=== PATIENT | female | born 1980 | race Caucasian/White ===

== ENCOUNTER 2017-04-16 10:03 | Inpatient (IN) | payer OTHER ==
[~2017-04-16] VITALS: Ht 162.6 cm; Wt 94.5 kg
[2017-04-16 10:17] VITALS: BP 135/86; PULSE 98; RESP 19; Ht 162.6 cm; Wt 94.5 kg
[2017-04-16 10:36] LABS: ADD SCAN DIFF NO
[2017-04-16 10:38] LABS: BASOPHILS % 0.2 % (0.0-2.0); EOSINOPHILS # 0.1 10^3/ul (0.0-0.5); EOSINOPHILS % 1.2 % (0.0-7.0); HEMATOCRIT 32.8 % (37.0-47.0); LYMPHOCYTES # 1.5 10^3/ul (0.8-2.9); LYMPHOCYTES % 15.5 % (15.0-51.0); MEAN CORPUSCULAR HEMOGLOBIN 28.5 pg (29.0-33.0); MEAN CORPUSCULAR HGB CONC 33.5 g/dl (32.0-37.0); MEAN PLATELET VOLUME 10.4 fl (7.4-10.4); MONOCYTE # 0.5 10^3/ul (0.3-0.9); MONOCYTES % 5.7 % (0.0-11.0); NEUTROPHIL # 7.2 10^3/ul (1.6-7.5); NEUTROPHILS % 76.5 % (39.0-77.0); PLATELET COUNT 253 10^3/UL (140-415); RED BLOOD COUNT 3.86 10^6/ul (4.20-5.40); RED CELL DISTRIBUTION WIDTH 13.9 % (11.5-14.5); WHITE BLOOD COUNT 9.4 10^3/ul (4.8-10.8)
--- NOTE | 2017-04-16 10:55 | RADRPT ---
PROCEDURE: OB ultrasound for biophysical profile CLINICAL INDICATION: Poor tone. TECHNIQUE: Multiple sonographic images of the pelvis were obtained. Transabdominal views of the g ravid uterus are available for review. The images were reviewed on a PACS workstation. COMPARISON: None FINDINGS: breathing movement = 2/2 tone = 2/2 motion = 2/2 CARLI = 2/2 CARLI = 10.6 cm Single live intrauterine with cardiac activity of 134 bpm. position is cephal ic. The placenta is anterior. IMPRESSION: 1. Single live intrauterine gestation. 2. Biophysical profile = 8/8. 3. CARLI = 10.6 cm. RPTAT: HH .Estefany Swann MD, MD Date Time Electronically viewed and signed by .Estefany Swann MD, on 04/16/2017 10:55 .G/
[2017-04-16 10:58] LABS: URINE BLOOD (Dip) POC Negative (NEGATIVE)
[2017-04-16] MEDS ORDERED: IRON1TAB78 PO (10:59)
[2017-04-16] MEDS ORDERED: PREN1TAB91 PO (10:59)
[2017-04-16] MEDS ORDERED: LABE100T3 PO (10:59)
--- NOTE | 2017-04-16 11:05 | RADRPT ---
PROCEDURE: Obstetrical ultrasound CLINICAL INDICATION: Hypertension TECHNIQUE: Multiple sonographic images of the pelvis were obtained. The images were reviewed on a PACS workstation. COMPARISON: None FINDINGS: The cervix is not well visualized. There is a single viable intrauterine gestation. Cardiac activity is present with 146 beats per minute. There is a vertex presentation. The placenta is anterior. There is no evidence for an abruption or placenta previa. There is a subjectively normal amount of amniotic fluid. Measurements were made in order to determine age. The results are as follows (cm): BPD =8.69 HC =32.09 AC =32.71 FL =6.49 Estimated gestational age by ultrasound of approximately 35 weeks, 2 days. The estimated date of delivery by ultrasound is 05/19/2017. Estimated gestational age by LMP of approximately 35 weeks, 0 days. The estimated date of delivery by LMP is 05/21/2017. EFW = 2724 grams (65th percentile) IMPRESSION: Single viable intrauterine gestation of approximately 35 weeks, 2 days . The estimated date of delivery is 05/19/2017 . Dating by ultrasound is within 2 days of dating by LMP. Cephalic presentation. Estimated weight is in the 65th percentile. RPTAT: EE Physician Vivian Date Time Electronically viewed and signed by Physician Vivian on 04/16/2017 11:05 /
[2017-04-16 11:07] LABS: PROTIME 13.2 Sec (12.2-14.2)
[2017-04-16 11:08] LABS: PARTIAL THROMBOPLASTIN TIME 28.6 Sec (25.0-35.0)
[2017-04-16 11:09] LABS: ALBUMIN 3.8 g/dl (3.3-4.9); ALBUMIN/GLOBULIN RATIO 1.31; BILIRUBIN,INDIRECT 0.5 mg/dl (0-1.1); BILIRUBIN,TOTAL 0.5 mg/dl (0.2-1.3); CALCIUM 9.2 mg/dl (8.4-10.2); CREATININE 0.57 mg/dl (0.44-1.00); POTASSIUM 3.8 mmol/L (3.5-5.1); TOTAL PROTEIN 6.7 g/dl (6.1-8.1); URIC ACID 4.6 mg/dl (3.1-7.9)
[2017-04-16] MEDS ORDERED: LACTATED RINGER'S 1,000 ML IV SCH (11:35)
[2017-04-16] MEDS ORDERED: ACETAMINOPHEN 325 MG TAB PO PRN (12:00)
[2017-04-16] MEDS ORDERED: ACCU-CHEK XX SCH (14:00)
--- NOTE | 2017-04-16 15:45 | CONS ---
Date/Time of Note Date/Time of Note DATE: 04/16/17 TIME: 15:36 Consultation Date/Type/Reason Admit Date/Time Apr 16, 2017 Hospital consult Reason for Consultation This patient is a 36 years old 8 para 4 living 4 : one set of twins , 3 therapeutic and 2 spontaneous vaginal delivery ,2 section. she is a scheduled for another section on May 15. She came to OB triage for consult ans subsequently admitted in the high risk due to elevated blood pressure and for collection of 24-hour urine. her due date is May 21, 2017 which makes her 35 weeks and 6 days On questioning the patient she is complaining of occasional headache and blurry vision Currently she is taking labetalol 150 mg twice daily, iron and multivitamin . on admission her blood pressure was around 136/86 and then again 134/84 and subsequently 131/79, in half an hour interval. Her vital signs were normal, blood pressure as I mentioned is 135/80, pulse rate 90, respiration 18, and temperature 97.7 On lab studies her PT was 13.2, INR 1 ,PTT 28 . Her liver function tests were basically normal,. Serum electrolytes were normal, hemoglobin 11 hematocrit 32.8 Except for the slight anemia no other abnormal finding on CBC Laboratory Tests Test 04/16/17 10:20 04/16/17 11:02 04/16/17 12:01 White Blood Count 9.410^3/ul Red Blood Count 3.8610^6/ul Hemoglobin 11.0g/dl Hematocrit 32.8% Mean Corpuscular Volume 85.0fl Mean Corpuscular Hemoglobin 28.5pg Mean Corpuscular Hemoglobin Concent 33.5g/dl Red Cell Distribution Width 13.9% Platelet Count 21461^3/UL Mean Platelet Volume 10.4fl Neutrophils % 76.5% Lymphocytes % 15.5% Monocytes % 5.7% Eosinophils % 1.2% Basophils % 0.2% Nucleated Red Blood Cells % 0.0/100WBC Neutrophils # 7.210^3/ul Lymphocytes # 1.510^3/ul Monocytes # 0.510^3/ul Eosinophils # 0.110^3/ul Basophils # 0.010^3/ul Nucleated Red Blood Cells # 0.010^3/ul Prothrombin Time 13.2Sec Prothrombin Time Ratio 1.0 INR International Normalized Ratio 1.00 Activated Partial Thromboplast Time 28.6Sec Sodium Level 138mmol/L Potassium Level 3.8mmol/L Chloride Level 110mmol/L Carbon Dioxide Level 19mmol/L Anion Gap 13 Blood Urea Nitrogen 9mg/dl Creatinine 0.57mg/dl Glucose Level 118mg/dl Uric Acid 4.6mg/dl Calcium Level 9.2mg/dl Total Bilirubin 0.5mg/dl Direct Bilirubin 0.00mg/dl Indirect Bilirubin 0.5mg/dl Aspartate Amino Transf (AST/SGOT) 17IU/L Alanine Aminotransferase (ALT/SGPT) 23IU/L Alkaline Phosphatase 80IU/L Total Protein 6.7g/dl Albumin 3.8g/dl Globulin 2.90g/dl Albumin/Globulin Ratio 1.31 Bedside Urine pH (LAB) 6.0 Bedside Urine Protein (LAB) Trace Bedside Urine Glucose (UA) Negative Bedside Urine Ketones (LAB) Negative Bedside Urine Blood Negative Bedside Urine Nitrite (LAB) Negative Bedside Urine Leukocyte Esterase (L 1+ Bedside Glucose 84mg/dL Current Medications Medications (Trade) Dose Ordered Sig/Timothy Route PRN Reason Start Time Stop Time Status Last Admin Dose Admin Lactated Ringer's (Lr) 1,000 ml @ 125 mls/hr Q8H IV 04/16/17 11:35 Prenat Multivit/ Military Professional/Iron/Folic Ac ( S) 1 tab DAILY PO 04/17/17 09:00 Ferrous Sulfate (Ferrous Sulfate (Ec)) 325 mg DAILY PO 04/17/17 09:00 Acetaminophen (Tylenol Tab) 650 mg Q4H PRN PO PAIN AND OR ELEVATED TEMP 04/16/17 12:00 Diagnostic Test (Pha) (Accu-Chek) 1 ea FBSPP XX 04/16/17 14:00 Constitutional: No chills, No diaphoresis, No disoriented, No febrile, No improved, No no complaints, No other, No poor po, No requiring IVF, No requiring O2 Eyes: No discharge, No no complaints, No other, No pain, No redness, No visual change ENT: No bleeding, No congestion, No discharge, No dysphagia, No no complaints, No other, No pain, No sore throat Respiratory: No cough, No no complaints, No other, No pain, No pleuritic pain, No shortness of breath, No sputum, No wheezing Cardiovascular: other (Slight elevation of the blood pressure), No chest pain, No edema, No lightheadedness, No no complaints, No orthopenea , No palpitations, No paroxysmal nocturnal dyspnea Gastrointestinal: No blood, No constipation, No decreased appetite, No diarrhea , No flatus, No nausea, No no complaints, No other, No pain, No passing stool, No vomiting Genitourinary: other (No discharge no vaginal bleeding), No bleeding, No discharge, No dysuria, No flank pain, No hematuria, No no complaints Musculoskeletal: No back pain, No bone/joint pain, No neck pain, No no complaints, No other, No restricted range of motion, No swelling Skin: No bruising, No erythema, No laceration, No no complaints, No other, No pruritis, No rash, No skin lesions Neurologic: other (Knee-jerk reflex were normal), No confusion, No dizziness, No focal-weakness, No headache, No no complaints , No seizure, No syncope Endocrine: No dry skin, No no complaints, No other, No polydypsia, No polyuria , No temp intolerance Additional Comments An ultrasound study was done ,her CARLI was 10.6 cm Report of ultrasound was single intrauterine with a heartbeat of 134 ,cephalic presentation and normal placenta Biophysical profile 06/18 and CARLI examination 10.6 Patient stated that she does not want to stay till tomorrow for 24 hour urine collection because tomorrow morning at 530 she has to be at home for this reason she will be discharged to continue the collection of the urine at home Social History Smoking Status: Never smoker Exam/Review of Systems Vital Signs Vitals Vital Signs Date Time Temp Pulse Resp B/P Pulse Ox O2 Delivery O2 Flow Rate FiO2 04/16/17 10:17 97.7 98 19 135/86 99 Room Air Results Result Diagram: 04/16/17 1020 04/16/17 1020 Results 24 hrs Laboratory Tests Test 04/16/17 10:20 04/16/17 11:02 04/16/17 12:01 White Blood Count 9.4 Red Blood Count 3.86 L Hemoglobin 11.0 L Hematocrit 32.8 L Mean Corpuscular Volume 85.0 Mean Corpuscular Hemoglobin 28.5 L Mean Corpuscular Hemoglobin Concent 33.5 Red Cell Distribution Width 13.9 Platelet Count 253 Mean Platelet Volume 10.4 Neutrophils % 76.5 Lymphocytes % 15.5 Monocytes % 5.7 Eosinophils % 1.2 Basophils % 0.2 Nucleated Red Blood Cells % 0.0 Neutrophils # 7.2 Lymphocytes # 1.5 Monocytes # 0.5 Eosinophils # 0.1 Basophils # 0.0 Nucleated Red Blood Cells # 0.0 Prothrombin Time 13.2 Prothrombin Time Ratio 1.0 INR International Normalized Ratio 1.00 Activated Partial Thromboplast Time 28.6 Sodium Level 138 Potassium Level 3.8 Chloride Level 110 Carbon Dioxide Level 19 L Anion Gap 13 Blood Urea Nitrogen 9 Creatinine 0.57 Glucose Level 118 Uric Acid 4.6 Calcium Level 9.2 Total Bilirubin 0.5 Direct Bilirubin 0.00 Indirect Bilirubin 0.5 Aspartate Amino Transf (AST/SGOT) 17 Alanine Aminotransferase (ALT/SGPT) 23 Alkaline Phosphatase 80 Total Protein 6.7 Albumin 3.8 Globulin 2.90 Albumin/Globulin Ratio 1.31 Bedside Urine pH (LAB) 6.0 Bedside Urine Protein (LAB) Trace H Bedside Urine Glucose (UA) Negative Bedside Urine Ketones (LAB) Negative Bedside Urine Blood Negative Bedside Urine Nitrite (LAB) Negative Bedside Urine Leukocyte Esterase (L 1+ H Bedside Glucose 84 Medications Medications Current Medications Lactated Ringer's (Lr) 1,000 ml @ 125 mls/hr Q8H IV ; Start 04/16/17 at 11:35 Prenat Multivit/ [employer] Professional/Iron/Folic Ac ( S) 1 tab DAILY PO ; Start at 09:00 Ferrous Sulfate (Ferrous Sulfate (Ec)) 325 mg DAILY PO ; Start 04/17/17 at 09:00 Acetaminophen (Tylenol Tab) 650 mg Q4H PRN PO PAIN AND OR ELEVATED TEMP; Start 04/16/17 at 12:00 Diagnostic Test (Pha) (Accu-Chek) 1 ea FBSPP XX ; Start 04/16/17 at 14:00 TEVIN SAAB MD Apr 16, 2017 15:45
--- NOTE | 2017-04-16 15:52 | QN ---
Documentation Comment April 16, 2017 Discharge summary This patient is a 36 years old 8 para 4 with one set of twins . She came to the triage area due to elevated blood pressure and for 24 hours urine collection to check urine protein . She was admitted in the hospital and a collection of urine protein was started , however the patient mentioned that she has to be in her home at 5:00 in the morning due the situation with her child . During her stay in the hospital her blood pressure was ranging from 136/86 only up to 121/70 ; a rather mild elevation of blood pressure. Her urine collection was started and the patient will be sent home sometimes tonight with the urine container to continue collecting the urine output 24 hours and bring it back to the hospital. Please note that her complete history and physical was dictated an hour ago on the hospital consult TEVIN SAAB MD Apr 16, 2017 15:52
[2017-04-17] MEDS ORDERED: MULTIVIT/MIN/FOLATE/IRON/PREN TAB PO SCH (09:00)
[2017-04-17] MEDS ORDERED: FERROUS SULFATE (EC) 325 MG TAB PO SCH (09:00)
== END 2017-04-16 20:51 | disposition home or self-care (01) | DRG 781 ==
LOC: OBT 10:03 → L-D 10:04 → OBT 11:16 → OBG 11:20
PROVIDERS: ADMIT Obstetrics & Gynecology; ATTEND Obstetrics & Gynecology
DX: O26.893 Other specified pregnancy related conditions, third trimester (principal); O09.523 Supervision of elderly multigravida, third trimester; Z3A.35 35 weeks gestation of pregnancy; O99.013 Anemia complicating pregnancy, third trimester
CPT/HCPCS: 36415; 76815; 76818; 80053; 81003; 82962; 84560; 85025; 85610; 85730; G0463; J7120

== ENCOUNTER 2017-04-17 12:09 | Outpatient (CLI) | payer OTHER ==
[~2017-04-17] VITALS: Ht 162.6 cm; Wt 94.2 kg
[~2017-04-17 12:09] MED LIST: IRON1TAB78 PO; LABE100T3 PO; PREN1TAB91 PO
[2017-04-17 12:54] VITALS: BP 127/81; PULSE 94
[2017-04-17 12:57] VITALS: Ht 162.6 cm; Wt 94.2 kg
[2017-04-17 13:42] LABS: SCRET 0.57 mg/dl (0.44-1.00)
--- NOTE | 2017-04-17 15:37 | TRIAGE ---
OB Triage Datetime Report Generated by CPN: 04/17/2017 15:36 Datetime: 04/17/2017 15:35 Stage of : OB Triage Maternal Assessment Level of Consciousness: Fully Conscious Headache: Denies Nausea/Vomiting: Denies RUQ Epigastric Pain: Denies Labor Evaluation Frequency: 0 Monitor Mode: External Heart Rate FHR Baseline Rate: 135 Monitor Mode: External US FHR Baseline Changes: No Baseline Change Variability: Moderate 6-25 bpm Accelerations: 15X15 Decelerations: None Category: Category I Pain Assessment Pain Scale: 0 Vaginal Exam Membrane Status: Intact Vaginal Bleeding: None Datetime: 04/17/2017 12:35 Stage of : OB Triage Assessment Type: Triage Maternal Assessment Level of Consciousness: Fully Conscious DTR's/Clonus: DTRs 2+; No Clonus Headache: Denies Blurred Vision: No Respiratory Effort: Unlabored; Regular Rhythm; Equal Expansion Nausea/Vomiting: Denies RUQ Epigastric Pain: Denies Lower Extremities Edema: None Upper Extremities Edema: None Facial Edema: None Fall Risk Assessment History of Falling: (0) No Secondary Diagnosis: (0) No Ambulatory Aid: (0) Bedrest/Nurse Assist IV Therapy: (0) No Gait: (0) Normal/Bedrest/Immobile Mental Status: (0) Oriented to Own Ability Fall Score: 0 Fall Risk Score Definition: No Risk: No action required Labor Evaluation Frequency: 0 Monitor Mode: External Heart Rate FHR Baseline Rate: 125 Monitor Mode: External US FHR Baseline Changes: No Baseline Change Variability: Moderate 6-25 bpm Accelerations: 15X15 Decelerations: None Category: Category I Pain Assessment Pain Scale: 0 Vaginal Exam Membrane Status: Intact Vaginal Bleeding: None Datetime: 04/16/2017 20:35 Labor Evaluation Frequency: 4-6 Monitor Mode: External Duration (sec)2399: 60-120 Quality: Mild Pattern: Normal: <= 5 Contractions in 10 Minutes Resting Tone [place]: Relaxed Heart Rate FHR Baseline Rate: 135 Monitor Mode: External US Variability: Moderate 6-25 bpm Accelerations: 15X15 Category: Category I Datetime: 04/16/2017 20:29 Monitor Mode: External US Comments: AUDIBLE ACCELERATIONS AND FHT'S HEARD THOUGH NOT RECORDED ON STRIP. Datetime: 04/16/2017 20:07 Monitor Mode: External US Datetime: 04/16/2017 20:00 Labor Evaluation Frequency: OCCASIONAL Monitor Mode: External Duration (sec)2399: 40-80 Quality: Mild Pattern: Normal: <= 5 Contractions in 10 Minutes Resting Tone [place]: Relaxed Contraction Comments: PT DENIES FEELING UC'S. Heart Rate FHR Baseline Rate: 130 Monitor Mode: External US Variability: Moderate 6-25 bpm Accelerations: 15X15 Decelerations: None Category: Category I Datetime: 04/16/2017 19:45 Assessment Type: Ongoing Assessment Maternal Assessment Level of Consciousness: Fully Conscious DTR's/Clonus: DTRs 2+; No Clonus Headache: Denies Blurred Vision: No Respiratory Effort: Unlabored; Regular Rhythm; Equal Expansion Breath Sounds, Left: Clear and Equal Breath Sounds, Right: Clear and Equal Nausea/Vomiting: Denies RUQ Epigastric Pain: Denies Lower Extremities Edema: None Degree: None Upper Extremities Edema: None Degree: None Facial Edema: None Fall Risk Assessment History of Falling: (0) No Secondary Diagnosis: (0) No Ambulatory Aid: (0) Bedrest/Nurse Assist IV Therapy: (0) No Gait: (0) Normal/Bedrest/Immobile Mental Status: (0) Oriented to Own Ability Fall Score: 0 Fall Risk Score Definition: No Risk: No action required Monitor Mode: External US Pain Assessment Pain Scale: 0 Pain Presence: None/Denies Pain Type: N/A Pain Goal: 2 Datetime: 04/16/2017 19:22 Bedside Blood Glucose: 94 Datetime: 04/16/2017 19:00 Labor Evaluation Frequency: IRRIT Monitor Mode: External Pattern: Normal: <= 5 Contractions in 10 Minutes Resting Tone [place]: Relaxed Heart Rate FHR Baseline Rate: 120 Monitor Mode: External US FHR Baseline Changes: No Baseline Change Variability: Moderate 6-25 bpm Accelerations: 15X15 Decelerations: None Category: Category I Datetime: 04/16/2017 18:11 Labor Evaluation Frequency: 0 Monitor Mode: External Pattern: Normal: <= 5 Contractions in 10 Minutes Resting Tone [place]: Relaxed Heart Rate FHR Baseline Rate: 130 Monitor Mode: External US FHR Baseline Changes: No Baseline Change Variability: Moderate 6-25 bpm Accelerations: 15X15 Decelerations: None Category: Category I Datetime: 04/16/2017 17:05 Labor Evaluation Frequency: 0 Monitor Mode: External Pattern: Normal: <= 5 Contractions in 10 Minutes Resting Tone [place]: Relaxed Heart Rate FHR Baseline Rate: 130 Monitor Mode: External US FHR Baseline Changes: No Baseline Change Variability: Moderate 6-25 bpm Accelerations: 15X15 Decelerations: None Category: Category I Datetime: 04/16/2017 16:05 Labor Evaluation Frequency: 0 Monitor Mode: External Pattern: Normal: <= 5 Contractions in 10 Minutes Resting Tone [place]: Relaxed Heart Rate FHR Baseline Rate: 140 Monitor Mode: External US FHR Baseline Changes: No Baseline Change Variability: Moderate 6-25 bpm Accelerations: 15X15 Decelerations: None Category: Category I Datetime: 04/16/2017 15:05 Labor Evaluation Frequency: 0 Monitor Mode: External Pattern: Normal: <= 5 Contractions in 10 Minutes Resting Tone [place]: Relaxed Heart Rate FHR Baseline Rate: 120 Monitor Mode: External US FHR Baseline Changes: No Baseline Change Variability: Moderate 6-25 bpm Accelerations: 15X15 Decelerations: None Category: Category I Datetime: 04/16/2017 14:05 Labor Evaluation Frequency: 0 Monitor Mode: External Pattern: Normal: <= 5 Contractions in 10 Minutes Resting Tone [place]: Relaxed Heart Rate FHR Baseline Rate: 120 Monitor Mode: External US FHR Baseline Changes: No Baseline Change Variability: Absent - Undetectable Accelerations: 15X15 Decelerations: None Category: Category I Datetime: 04/16/2017 13:32 Labor Evaluation Frequency: 0 Monitor Mode: External Pattern: Normal: <= 5 Contractions in 10 Minutes Resting Tone [place]: Relaxed Heart Rate FHR Baseline Rate: 120 Monitor Mode: External US FHR Baseline Changes: No Baseline Change Variability: Moderate 6-25 bpm Accelerations: 15X15 Decelerations: None Category: Category I Datetime: 04/16/2017 12:32 Temperature Route: Oral Labor Evaluation Frequency: 0 Monitor Mode: External Pattern: Normal: <= 5 Contractions in 10 Minutes Resting Tone [place]: Relaxed Heart Rate FHR Baseline Rate: 120 Monitor Mode: External US FHR Baseline Changes: No Baseline Change Variability: Moderate 6-25 bpm Accelerations: 15X15 Decelerations: None Category: Category I Datetime: 04/16/2017 12:03 Maternal Assessment Level of Consciousness: Fully Conscious DTR's/Clonus: DTRs 2+; No Clonus Headache: Denies Breath Sounds, Left: Clear and Equal Breath Sounds, Right: Clear and Equal Nausea/Vomiting: Denies RUQ Epigastric Pain: Denies Temperature Route: Oral Labor Evaluation Frequency: 0 Monitor Mode: External Pattern: Normal: <= 5 Contractions in 10 Minutes Resting Tone [place]: Relaxed Heart Rate FHR Baseline Rate: 120 Monitor Mode: External US FHR Baseline Changes: No Baseline Change Variability: Moderate 6-25 bpm Accelerations: 15X15 Decelerations: None Category: Category I Datetime: 04/16/2017 11:51 Assessment Type: Admission Assessment Blurred Vision: No Respiratory Effort: Unlabored; Regular Rhythm; Equal Expansion Degree: None Upper Extremities Edema: None Degree: None Facial Edema: None Fall Risk Assessment History of Falling: (0) No Secondary Diagnosis: (0) No Ambulatory Aid: (0) Bedrest/Nurse Assist IV Therapy: (0) No Gait: (0) Normal/Bedrest/Immobile Mental Status: (0) Oriented to Own Ability Fall Score: 0 Fall Risk Score Definition: No Risk: No action required Datetime: 04/16/2017 11:50 Labor Evaluation Frequency: 0 Monitor Mode: External Resting Tone [place]: Relaxed Heart Rate FHR Baseline Rate: 130 Monitor Mode: External US FHR Baseline Changes: No Baseline Change Variability: Moderate 6-25 bpm Accelerations: 15X15 Decelerations: None Category: Category I Datetime: 04/16/2017 11:46 Stage of : Antepartum Temperature Route: Oral Pain Assessment Pain Scale: 0 Pain Presence: None/Denies Pain Goal: 0 Datetime: 04/16/2017 11:16 Labor Evaluation Frequency: NONE Monitor Mode: External Resting Tone [place]: Relaxed Heart Rate FHR Baseline Rate: 140 Monitor Mode: External US Variability: Moderate 6-25 bpm Accelerations: 10X10 Decelerations: None Category: Category I Vaginal Exam Membrane Status: Intact Datetime: 04/16/2017 10:31 Maternal Assessment Level of Consciousness: Fully Conscious DTR's/Clonus: DTRs 1+ Headache: Occipital Blurred Vision: Yes Respiratory Effort: Unlabored Breath Sounds, Left: Clear and Equal Breath Sounds, Right: Clear and Equal Nausea/Vomiting: Denies RUQ Epigastric Pain: Present Facial Edema: None Labor Evaluation Frequency: NONE Monitor Mode: External Resting Tone [place]: Relaxed Heart Rate FHR Baseline Rate: 140 Monitor Mode: External US Variability: Moderate 6-25 bpm Accelerations: 15X15 Decelerations: None Category: Category I Pain Assessment Pain Scale: 0 Pain Presence: None/Denies Pain Type: N/A Pain Goal: 3 Datetime: 04/16/2017 10:09 Stage of : OB Triage Maternal Assessment Level of Consciousness: Fully Conscious DTR's/Clonus: DTRs 2+; No Clonus Headache: Denies Blurred Vision: No Respiratory Effort: Unlabored; Regular Rhythm; Equal Expansion Breath Sounds, Left: Clear and Equal Breath Sounds, Right: Clear and Equal Nausea/Vomiting: Denies RUQ Epigastric Pain: Denies Lower Extremities Edema: None Degree: None Upper Extremities Edema: Bilateral Upper Extremities Degree: Pitting Facial Edema: None Temperature Route: Oral Fall Risk Assessment History of Falling: (0) No Secondary Diagnosis: (0) No Ambulatory Aid: (0) Bedrest/Nurse Assist IV Therapy: (0) No Gait: (0) Normal/Bedrest/Immobile Mental Status: (0) Oriented to Own Ability Fall Score: 0 Fall Risk Score Definition: No Risk: No action required Datetime: 04/16/2017 10:00 Stage of : OB Triage Time of Arrival: 04/16/2017 10:00 EGA: 35.0 Arrived By: Ambulatory Arrived From: Office Chief Complaint: PT CAME IN FROM [facility] FOR CHRONIC HYPERTENCION C/O HEADACHE, BLURRED VIS ION, EPIGASTRIC PAIN AND SWELLING ON HANDS AND FEET Movement: Present Contractions: Denies/Absent Contractions: 0 Rupture of Membranes: Denies Vaginal Discharge: Denies Recent Sexual Intercouse: Denies Abdominal Trauma: Not Applicable Patient Complaints: None Additional Patient Complaints: NONE Time Provider Notified: 04/17/2017 13:40 Provider Notified: MAVERICK Initial Plan: [facility] PANEL, BPP
--- NOTE | 2017-04-17 17:39 | PN ---
Triage Information Date/Time April 17, 2017 Weeks of Gestation 35 weeks and 1 day : 8 Para: 5 Diabetes: none Hypertention: induced Additional information 36-year-old with IUP at 35 weeks and 1 day with elevated blood pressure was sent to triage for follow-up of blood pressure as well as to drop 24 hour urine protein. Patient was monitored during observation and her blood pressure was 110-120s over 60s-80s. She denies any headache, blurred vision or epigastric pain. 24 hour urine protein: 98 patient currently on labetalol 100 mg p.o. twice daily. She also has a history of GDM during current , diet controlled. Her fasting blood sugar is 89. Patient reports she had episodes of headache and blurred vision couple days ago and she checked her blood pressure at home and once was 140/90 but then after rest shortly resolves. She is aware of signs and symptoms of preeclampsia. Currently denies any leaking of fluid, vaginal bleeding or contraction. Objective Vital Signs Date Time Temp Pulse Resp B/P Pulse Ox O2 Delivery O2 Flow Rate FiO2 04/17/17 12:54 98.6 94 127/81 Room Air Exam GA:A&O, NAD Abdomen: Soft, gravid, fundal height consistent with gestational age. Nontender , no rebound tenderness, no rigidity no guarding Extremities: No calf tenderness, 1+ symmetric bilateral edema. No click , negative Homans sign NST: Category 1 Results/Medications Results 24 hrs Laboratory Tests Test 04/17/17 12:45 Urine Random Creatinine 110.90 Urine Collection Duration 24 Urine Total Volume 24 Hours 1225 Urine Creatinine Timed 24 Creatinine Clearance 165.5 H Urine Total Volume (Protein) 1225 Urine Total Protein 24 Hour 98.0 Imaging Results PROCEDURE: Obstetrical ultrasound CLINICAL INDICATION: Hypertension TECHNIQUE: Multiple sonographic images of the pelvis were obtained. The images were reviewed on a PACS workstation. COMPARISON: None FINDINGS: The cervix is not well visualized. There is a single viable intrauterine gestation. Cardiac activity is present with 146 beats per minute. There is a vertex presentation. The placenta is anterior. There is no evidence for an abruption or placenta previa. There is a subjectively normal amount of amniotic fluid. Measurements were made in order to determine age. The results are as follows (cm): BPD = 8.69 HC = 32.09 AC = 32.71 FL = 6.49 Estimated gestational age by ultrasound of approximately 35 weeks, 2 days. The estimated date of delivery by ultrasound is 05/19/2017. Estimated gestational age by LMP of approximately 35 weeks, 0 days. The estimated date of delivery by LMP is 05/21/2017. EFW = 2724 grams (65th percentile) IMPRESSION: Single viable intrauterine gestation of approximately 35 weeks, 2 days . The estimated date of delivery is 05/19/2017 . Dating by ultrasound is within 2 days of dating by LMP. Cephalic presentation. Estimated weight is in the 65th percentile. Assessment/Plan IUP at 35 weeks and 1 day GDM, diet controlled PIH, blood pressure well controlled with labetalol p.o. twice daily No evidence of preeclampsia No evidence of labor, or PPROM NST: Category 1 Patient is aware of signs and symptoms of preeclampsia DC home Follow-up with office in 1-2 days Strict labor precaution and kick count and preeclampsia precaution Return to triage if she has any of the above symptoms or any concerns. Patient verbalized understanding SHREYA SAEED MD Apr 17, 2017 17:39
== END 2017-04-17 14:10 | disposition home or self-care (01) ==
LOC: OBT 12:09 → L-D 12:11 → OBT 14:10
PROVIDERS: ATTEND Obstetrics & Gynecology
DX: O13.3 Gestational [pregnancy-induced] hypertension without significant proteinuria, third trimester (principal); O24.410 Gestational diabetes mellitus in pregnancy, diet controlled; O09.523 Supervision of elderly multigravida, third trimester; Z3A.35 35 weeks gestation of pregnancy
CPT/HCPCS: 82575; 84156; Z7500; G0463

== ENCOUNTER 2017-05-15 04:56 | Inpatient (IN) | payer OTHER ==
[~2017-05-15] VITALS: Ht 162.6 cm; Wt 96.3 kg
--- NOTE | 2017-05-15 04:59 | NSTRPT ---
NST Information Datetime Report Generated by CPN: 05/15/2017 04:59 Datetime: 05/10/2017 13:07 NST Information EGA: 38.3 Test Number: 3 Time on Monitor: 05/10/2017 13:45 Time off Monitor: 05/10/2017 14:11 NST Duration (Min): 26 Reason for NST: Chronic Hypertension Test and Monitor Explained: Monitor Explained; Test Explained; Verbalized Understanding Pulse: 100 Resp: 18 SBP: 115 DBP: 77 Test Evaluation NST Interventions: None Patient States Movement: Present Contraction Frequency: NONE FHR Baseline : 130 Variability: Moderate 6-25bpm Decelerations: None FHR Category: Category I NST Results: Reactive Comments: To u/s. CARLI 16.3cm. CEPHALIC. Pt home undelivered with labor precautions, kick count instructions reviewed and to follow up with scheduled c/s for 05/15. States understanding and denies futher questions at this time. Electronically Signed By E-Signature: with User ID: [id number] Datetime: 05/07/2017 13:20 NST Information EGA: 38.0 NST Duration (Min): 47 Datetime: 04/12/2017 13:12 NST Information EGA: 34.3 Datetime: 04/12/2017 13:10 NST Duration (Min): 30
[2017-05-15] MEDS ORDERED: LACTATED RINGER'S 1,000 ML IV SCH (05:02)
[2017-05-15 05:14] VITALS: Ht 162.6 cm; Wt 96.3 kg
[2017-05-15] MEDS ORDERED: METHYLERGONOVINE 0.2 MG INJ IM PRN ×2 (05:30→13:00)
[2017-05-15] MEDS ORDERED: CARBOPROST 250 MCG INJ IM PRN ×2 (05:30→13:00)
[2017-05-15] MEDS ORDERED: OXYTOCIN 30 UNITS/LR 500 ML IV SCH (05:30)
[2017-05-15] MEDS ORDERED: MISOPROSTOL 200 MCG TAB PR PRN ×2 (05:30→13:00)
[2017-05-15] MEDS ORDERED: OXYTOCIN 30 UNITS/LR 500 ML IV PRN ×2 (05:30→13:00)
[2017-05-15] MEDS ORDERED: CEFAZOLIN 2 GM/50 ML (PMX) 50 ML IV SCH (05:30)
[2017-05-15 05:38] LABS: ADD SCAN DIFF NO
[2017-05-15 05:42] LABS: BASOPHILS % 0.4 % (0.0-2.0); EOSINOPHILS # 0.1 10^3/ul (0.0-0.5); HEMATOCRIT 33.9 % (37.0-47.0); HEMOGLOBIN 11.5 g/dl (12.0-16.0); LYMPHOCYTES # 2.4 10^3/ul (0.8-2.9); LYMPHOCYTES % 21.7 % (15.0-51.0); MEAN CORPUSCULAR HEMOGLOBIN 28.3 pg (29.0-33.0); MEAN CORPUSCULAR HGB CONC 33.9 g/dl (32.0-37.0); MEAN CORPUSCULAR VOLUME 83.5 fl (82.0-101.0); MEAN PLATELET VOLUME 10.5 fl (7.4-10.4); MONOCYTE # 0.8 10^3/ul (0.3-0.9); MONOCYTES % 6.8 % (0.0-11.0); NEUTROPHIL # 7.7 10^3/ul (1.6-7.5); NEUTROPHILS % 69.5 % (39.0-77.0); PLATELET COUNT 200 10^3/UL (140-415); RED BLOOD COUNT 4.06 10^6/ul (4.20-5.40); RED CELL DISTRIBUTION WIDTH 13.4 % (11.5-14.5); WHITE BLOOD COUNT 11.1 10^3/ul (4.8-10.8)
[2017-05-15 05:54] LABS: INR 0.91; PROTIME 12.2 Sec (12.2-14.2)
[2017-05-15 05:55] LABS: PARTIAL THROMBOPLASTIN TIME 28.3 Sec (25.0-35.0)
[2017-05-15] MEDS ORDERED: OXYTOCIN 30 UNITS/LR 500 ML BAG IV ONE (07:00)
[2017-05-15] MEDS ORDERED: ONDANSETRON 4 MG INJ ONE (08:25)
[2017-05-15] MEDS ORDERED: PHENYLephrine (100 MCG/ML) 5ML SYG ONE (08:25)
[2017-05-15] MEDS ORDERED: morphine SULFATE/PF (10 MG/10 ML) INJ ONE (08:25)
[2017-05-15] MEDS ORDERED: OXYTOCIN 10 UNIT INJ ONE (08:25)
--- NOTE | 2017-05-15 08:48 | HP ---
Date/Time of Note Date/Time of Note DATE: 05/15/17 TIME: 08:32 OB - History Hx of Present Free Text/Dictation 36 years old female 8 para 5 T2-PT 3 SAB 1 L5 admitted to [facility] at 39 weeks and 1 day with a history of previous section with twin according to her this has been complicated with gestational diabetes diet-controlled and chronic hypertension taking labetalol 150 mg 2 times per day [employer] is [place] at age 11 history of total of 8 including present 5 living children to termination and 3 delivery. Allergies denies allergy to any known medication Social denies a smoking or drinking using illicit drugs Review of system within normal Physical examination 5 feet 212 pounds total weight gain during this 30 pound temperature 98.6 pulse 92 respiration 18 blood pressure 133/91 Head ears nose and throat negative Neck supple no thyromegaly Lungs clear to P&A Heart normal changes of rhythm no murmur Abdomen fundal height 38 cm from symphysis pubis with heart rate category 1 Pelvic examination deferred Extremities no edema reflexes are within normal Impression Intrauterine at 39 weeks and 1 day history of previous section patient has been counseled regarding the complication of the surgery including bowel bladder injury infection hemorrhage and hematoma and she is willing to go ahead with the procedure Chief Complaint: 39 weeks and 1 day history of previous Estimated Due Date: May 21, 2017 : 8 Para: 5 Spontaneous : 2 Care: Good Care Ultrasounds: Normal mid trimester US Obstetrical Complications: Gestational Diabetes, Other (Chronic hypertension) Medical Complications: Cardiovascular Past Family/Social History * Past Medical, Surgical, Family and Obstetric Histories reviewed from chart. Rubella: immune RPR/VDRL: Negative GBS Status: Negative HBsAG: Negative OB Admission Exam Physical Exam HEENT: WNL Heart: Rhythm Normal Lungs: Clear, Equal Abdomen: WNL Extremities: Normal Reflexes: Normal Cervical Dilatation: None Station: -2 Heart Rate: 130's Accelerations: Accelerations Present Varibility: Moderate Intensity: Mild Last 72 hours Lab Results CBC & BMP 05/15/17 05:25 OB Assessment/Plan Reason for admission: other (Repeat at 39 weeks and 1 day) RAMANA PAYNE MD May 15, 2017 08:42
--- NOTE | 2017-05-15 09:44 | OPR ---
Operative Report Planned Procedure Free Text/Dictation 8 para 5 history of 2 previous section admitted for repeat C- section at 39 weeks and 1 day complication of repeat including but not limited to bowel and bladder injury infection hemorrhage and hematoma discussed with the patient she would like to proceed with repeat for the third time Procedure date May 15, 2017 Procedure(s) Repeat Performed by: RAMANA PAYNE MD Assisting provider: SHREYA SAEED MD Anesthesiologist: HOLLAND CARTER MD Pre-procedure diagnosis 39 weeks 1 day 2 previous section underwent repeat for the third time Anesthesia Type: spinal Procedure Description Under satisfactory [spinal] anesthesia, patient was prepped and draped and placed in a supine position, tilted to the left. Pfannenstiel incision was made , carried through the subcutaneous tissue. Bleeders brought under control with electrocautery. Fascia incised to the length of the incision. Rectus muscles from the fascia, divided in midline. Peritoneum exposed, entered through a transverse incision. Exploration of abdomen revealed gravid uterus normal-appearing tubes and ovaries. Bladder flap was developed. Transverse incision was made in the lower segment of the uterus. Amniotic sac ruptured. [ Clear] amniotic fluid noted. Light baby girl was delivered from unengaged vertex Nasal oropharyngeal suction was performed. The baby was handed to the team for immediate attention. Patient received 20 units of Pitocin placenta was delivered manually intact inspected complete. Uterine cavit cleaned with wet sponge and drainage established. Uterus closed in 2 layers using [Monocryl #1] in continuous fashion. Peritoneal cavity irrigated with warm saline. Sponge, needle and instrument count reported to be correct. Abdominal peritoneum closed with [2-0 chromic catgut] continuously. Rectus muscle approximated with [3 interrupted 2-0 chromic catgut]. Fascia closed with #1 PDS [], subcutaneous tissue approximated with interrupted 2-0 chromic catgut skin closed with vernon. Estimated blood loss [600]mL. Urine bag contained 200 []mL of clear urine patient tolerated procedure well transferred to recovery room in good condition. Post-Procedure Findings: Live Baby [girl], Apgars [8] and [9], weight [], position [OP], [vertex] presentation []cord Blood obtained Complications: None Pt Condition post procedure: stable Physician Certification I, the undersigned physician, hereby certify that I have discussed the procedure described in this consent form with this patient (or the patient's legal branch service representative), including: * The risk and benefits of the procedure; * Any adverse reactions that may reasonably be expected to occur; * Any alternative efficacious methods of treatment which may be medically viable ; * The potential problems that may occur during recuperation; * Potential for blood transfusion and associated risks/benefits; and * Any research or economic interest I may have regarding this treatment. I further certify that the patient/legally responsible person was encouraged to ask question and that all questions were answered. RAMANA PAYNE MD May 15, 2017 09:44
[2017-05-15] MEDS: KETOROLAC 30 MG INJ IV PRN ×3 (11:21→22:31)
[2017-05-15] MEDS ORDERED: ONDANSETRON 4 MG INJ IV PRN (11:30)
[2017-05-15] MEDS ORDERED: DIPHENHYDRAMINE 50 MG INJ IV PRN (11:30)
[2017-05-15] MEDS ORDERED: NALOXONE (0.4 MG/ML) INJ IV PRN (11:30)
[2017-05-15] MEDS ORDERED: morphine 2 MG INJ IV PRN (11:30)
[2017-05-15 12:30] VITALS: BP 140/79; PULSE 67; RESP 19
[2017-05-15 13:00] VITALS: BP 131/90; PULSE 70; RESP 19
[2017-05-15] MEDS ORDERED: LANOLIN 7 GM TUBE TOP PRN (13:00)
[2017-05-15] MEDS ORDERED: CEFAZOLIN 1 GM/50 ML (PMX) 50 ML IVPB SCH (13:00)
[2017-05-15] MEDS ORDERED: OXYCODONE/ACETAMINOPHEN (5/325) TAB PO PRN (13:00)
[2017-05-15] MEDS ORDERED: ACETAMINOPHEN/CODEINE #3 TAB PO PRN ×2 (13:00)
[2017-05-15 13:30] VITALS: BP 126/81; PULSE 67; RESP 18
[2017-05-15] MEDS: OXYTOCIN 30 UNITS/LR 500 ML IV SCH ×3 (14:25→23:30)
[2017-05-15 14:30] VITALS: BP 126/89; PULSE 83; RESP 19
[2017-05-15 16:00] VITALS: BP 122/66; PULSE 85; RESP 18
[2017-05-15 20:00] VITALS: BP 108/67; PULSE 74; RESP 20
[2017-05-15] MEDS: LABETALOL 100 MG TAB PO SCH (22:30)
[2017-05-15] MEDS: SENNA/DOCUSATE NA (8.6MG/50MG) TAB PO SCH (22:31)
[2017-05-16] VITALS: BP 116/76
[2017-05-16 04:11] VITALS: BP 96/61; RESP 20
[2017-05-16] MEDS: OXYTOCIN 30 UNITS/LR 500 ML IV SCH ×3 (04:38→08:50)
[2017-05-16] MEDS: KETOROLAC 30 MG INJ IV PRN (06:16)
[2017-05-16 07:25] VITALS: BP 110/56; PULSE 79; RESP 19
[2017-05-16 07:58] LABS: ADD SCAN DIFF NO
[2017-05-16 08:14] LABS: BASOPHILS % 0.3 % (0.0-2.0); EOSINOPHILS # 0.1 10^3/ul (0.0-0.5); EOSINOPHILS % 0.8 % (0.0-7.0); HEMOGLOBIN 9.6 g/dl (12.0-16.0); LYMPHOCYTES # 1.5 10^3/ul (0.8-2.9); LYMPHOCYTES % 12.3 % (15.0-51.0); MEAN CORPUSCULAR HEMOGLOBIN 29.4 pg (29.0-33.0); MEAN CORPUSCULAR HGB CONC 34.3 g/dl (32.0-37.0); MEAN CORPUSCULAR VOLUME 85.6 fl (82.0-101.0); MEAN PLATELET VOLUME 10.7 fl (7.4-10.4); MONOCYTE # 0.7 10^3/ul (0.3-0.9); MONOCYTES % 5.6 % (0.0-11.0); NEUTROPHIL # 9.5 10^3/ul (1.6-7.5); NEUTROPHILS % 80.5 % (39.0-77.0); PLATELET COUNT 178 10^3/UL (140-415); RED BLOOD COUNT 3.27 10^6/ul (4.20-5.40); RED CELL DISTRIBUTION WIDTH 13.7 % (11.5-14.5); WHITE BLOOD COUNT 11.8 10^3/ul (4.8-10.8)
[2017-05-16] MEDS: SENNA/DOCUSATE NA (8.6MG/50MG) TAB PO SCH ×2 (08:54→21:23)
[2017-05-16] MEDS: LABETALOL 100 MG TAB PO SCH ×2 (08:54→21:00)
[2017-05-16] MEDS: OXYCODONE/ACETAMINOPHEN (5/325) TAB PO PRN ×3 (10:06→21:24)
--- NOTE | 2017-05-16 10:34 | QN ---
Documentation Comment Post day 1 Afebrile vital signs stable abdomen soft bowel sounds present lochia moderate extremity normal ambulation encouraged Laboratory Tests Test 05/16/17 07:45 White Blood Count 11.810^3/ul Red Blood Count 3.2710^6/ul Hemoglobin 9.6g/dl Hematocrit 28.0% Mean Corpuscular Volume 85.6fl Mean Corpuscular Hemoglobin 29.4pg Mean Corpuscular Hemoglobin Concent 34.3g/dl Red Cell Distribution Width 13.7% Platelet Count 48860^3/UL Mean Platelet Volume 10.7fl Neutrophils % 80.5% Lymphocytes % 12.3% Monocytes % 5.6% Eosinophils % 0.8% Basophils % 0.3% Nucleated Red Blood Cells % 0.0/100WBC Neutrophils # 9.510^3/ul Lymphocytes # 1.510^3/ul Monocytes # 0.710^3/ul Eosinophils # 0.110^3/ul Basophils # 0.010^3/ul Nucleated Red Blood Cells # 0.010^3/ul Current Medications Medications (Trade) Dose Ordered Sig/Timothy Route PRN Reason Start Time Stop Time Status Last Admin Dose Admin Lactated Ringer's 1,000 ml @ 125 mls/hr Q8H IV 05/15/17 05:02 05/15/17 12:57 DC 05/15/17 05:29 Cefazolin Sodium/ Dextrose 50 ml @ 100 mls/hr ONCE IV 05/15/17 05:30 05/15/17 12:57 DC Oxytocin/Lactated Ringer's 500 ml @ 125 mls/hr ONCE IV 05/15/17 05:30 05/15/17 12:57 DC 05/15/17 10:27 Oxytocin/Lactated Ringer's 500 ml @ 0 mls/hr ONCE PRN IV For Hemorrhage Management 05/15/17 05:30 05/15/17 12:57 DC Methylergonovine Maleate (Methergine) 0.2 mg ONCE PRN IM VAGINAL BLEEDING 05/15/17 05:30 05/15/17 12:57 DC Carboprost Tromethamine (Hemabate) 250 mcg ONCE PRN IM VAGINAL BLEEDING 05/15/17 05:30 05/15/17 12:57 DC Misoprostol (Cytotec) 1,000 mcg ONCE PRN ME VAGINAL BLEEDING 05/15/17 05:30 7/5/17 12:56 DC Ondansetron HCl (Zofran Inj) 4 mg STK-MED ONCE .ROUTE 05/15/17 08:25 05/15/17 08:26 DC Phenylephrine HCl (Wayne-Synephrine Inj Syg) 500 mcg STK-MED ONCE .ROUTE 05/15/17 08:25 05/15/17 08:26 DC Oxytocin (Oxytocin) 10 units STK-MED ONCE .ROUTE 05/15/17 08:25 05/15/17 08:26 DC Morphine Sulfate (Duramorph) 10 mg STK-MED ONCE .ROUTE 05/15/17 08:25 05/15/17 08:26 DC Naloxone HCl (Narcan) 0.1 mg Q2M PRN IV FOR RESP RATE 8 OR LESS 05/15/17 11:30 05/16/17 11:29 Ketorolac Tromethamine (Toradol) 30 mg Q6H PRN IV PAIN 05/15/17 11:30 05/16/17 11:29 05/16/17 06:16 Morphine Sulfate (morphine) 2 mg Q3H PRN IV PAIN LEVEL 1-5 05/15/17 11:30 05/16/17 11:29 Diphenhydramine HCl (Benadryl) 25 mg Q6H PRN IV ITCHING 05/15/17 11:30 05/16/17 11:29 Ondansetron HCl (Zofran Inj) 4 mg Q6H PRN IV NAUSEA AND/OR VOMITING 05/15/17 11:30 05/16/17 11:29 05/15/17 11:22 Miscellaneous Information (* Miscellaneous Pharmacy Order) Duramorph: 0.2 mg Spi... GIVEN XX 05/15/17 11:30 05/15/17 12:56 DC Acetaminophen/ Codeine Phosphate (Tylenol No.3) 1 tab Q4H PRN PO PAIN LEVEL 4-6 05/15/17 13:00 Acetaminophen/ Codeine Phosphate (Tylenol No.3) 2 tab Q4H PRN PO PAIN LEVEL 7-10 05/15/17 13:00 Oxycodone/ Acetaminophen (Percocet (5/ 325)) 1 tab Q4H PRN PO PAIN LEVEL 4-6 05/15/17 13:00 Oxycodone/ Acetaminophen (Percocet (5/ 325)) 2 tab Q4H PRN PO PAIN LEVEL 7-10 05/15/17 13:00 05/16/17 10:06 Ibuprofen (Motrin) 600 mg Q6 PO 05/16/17 12:00 Simethicone (Mylicon) 160 mg Q8H PRN PO DISTENSION/GAS/BLOATING 05/15/17 13:00 Senna/Docusate Sodium (Senokot-S) 1 tab BID PO 05/15/17 21:00 05/16/17 08:54 Lanolin (Ufu-[id number]) 1 applic BEDSIDE MEDICATION PRN TOP BEDSIDE FOR MATILDA TO NIPPLES 05/15/17 13:00 Diphtheria/ Tetanus/Acell Pertussis 0.5 ml 0.5 ml ONCE ONCE IM* 05/18/17 09:00 05/18/17 09:01 Oxytocin/Lactated Ringer's 500 ml @ 0 mls/hr ONCE PRN IV For Hemorrhage Management 05/15/17 13:00 Methylergonovine Maleate (Methergine) 0.2 mg ONCE PRN IM VAGINAL BLEEDING 05/15/17 13:00 Carboprost Tromethamine (Hemabate) 250 mcg ONCE PRN IM VAGINAL BLEEDING 05/15/17 13:00 Misoprostol 1000 mcg 1,000 mcg ONCE PRN ME VAGINAL BLEEDING 05/15/17 13:00 Cefazolin Sodium 50 ml @ 100 mls/hr ONCE IVPB 05/15/17 13:00 05/15/17 13:29 DC 05/15/17 17:30 Oxytocin/Lactated Ringer's 500 ml @ 125 mls/hr Q4H IV 05/15/17 12:50 05/16/17 04:38 Labetalol HCl (Normodyne) 100 mg BID PO 05/15/17 21:00 05/15/17 22:30 RAMANA PAYNE MD May 16, 2017 10:34
[2017-05-16 11:43] VITALS: BP 105/58; PULSE 80; RESP 18
[2017-05-16] MEDS: IBUPROFEN 600 MG TAB PO SCH ×3 (11:43→23:46)
[2017-05-16 16:12] VITALS: BP 100/61; PULSE 78; RESP 19
[2017-05-16 20:00] VITALS: BP 113/72; PULSE 80; RESP 20
[2017-05-17] MEDS: OXYCODONE/ACETAMINOPHEN (5/325) TAB PO PRN ×4 (04:02→20:40)
[2017-05-17 04:23] VITALS: BP 105/66; RESP 20
[2017-05-17] MEDS: IBUPROFEN 600 MG TAB PO SCH ×4 (05:40→23:38)
[2017-05-17 07:30] VITALS: BP 121/81; PULSE 79; RESP 18
[2017-05-17] MEDS: LABETALOL 100 MG TAB PO SCH ×2 (09:00→21:00)
[2017-05-17 11:14] VITALS: BP 118/78; PULSE 76; RESP 19
[2017-05-17] MEDS: SENNA/DOCUSATE NA (8.6MG/50MG) TAB PO SCH ×2 (11:14→20:39)
[2017-05-17 15:41] VITALS: BP 130/73; PULSE 77; RESP 18
[2017-05-17 20:00] VITALS: BP 129/73; PULSE 82; RESP 20
[2017-05-18 04:23] VITALS: BP 133/61; PULSE 72; RESP 20
[2017-05-18] MEDS: IBUPROFEN 600 MG TAB PO SCH ×2 (05:30→11:34)
[2017-05-18] MEDS: OXYCODONE/ACETAMINOPHEN (5/325) TAB PO PRN ×2 (07:55→14:13)
[2017-05-18 08:30] VITALS: BP 101/72; PULSE 80; RESP 18
[2017-05-18] MEDS: SENNA/DOCUSATE NA (8.6MG/50MG) TAB PO SCH (08:48)
[2017-05-18] MEDS: LABETALOL 100 MG TAB PO SCH (08:58)
[2017-05-18] MEDS ORDERED: DIPHTH/TET/ACEL PERTUSS (ADULT) 0.5 ML VIAL IM* ONE (09:00)
--- NOTE | 2017-05-18 12:31 | DS ---
Date/Time of Note Date/Time of Note DATE: 05/18/17 TIME: 12:27 Obstetrical Discharge Record Final Diagnosis Final Diagnosis: Term delivered Section Section: Primary Complications Augmentation: No Induction: No Gestational Age at Rupture Current Medications Medications (Trade) Dose Ordered Sig/Timothy Route PRN Reason Start Time Stop Time Status Last Admin Dose Admin Lactated Ringer's 1,000 ml @ 125 mls/hr Q8H IV 05/15/17 05:02 05/15/17 12:57 DC 05/15/17 05:29 Cefazolin Sodium/ Dextrose 50 ml @ 100 mls/hr ONCE IV 05/15/17 05:30 05/15/17 12:57 DC Oxytocin/Lactated Ringer's 500 ml @ 125 mls/hr ONCE IV 05/15/17 05:30 05/15/17 12:57 DC 05/15/17 10:27 Oxytocin/Lactated Ringer's 500 ml @ 0 mls/hr ONCE PRN IV For Hemorrhage Management 05/15/17 05:30 05/15/17 12:57 DC Methylergonovine Maleate (Methergine) 0.2 mg ONCE PRN IM VAGINAL BLEEDING 05/15/17 05:30 05/15/17 12:57 DC Carboprost Tromethamine (Hemabate) 250 mcg ONCE PRN IM VAGINAL BLEEDING 05/15/17 05:30 05/15/17 12:57 DC Misoprostol (Cytotec) 1,000 mcg ONCE PRN IN VAGINAL BLEEDING 05/15/17 05:30 05/15/17 12:56 DC Ondansetron HCl (Zofran Inj) 4 mg STK-MED ONCE .ROUTE 05/15/17 08:25 05/15/17 08:26 DC Phenylephrine HCl (Wayne-Synephrine Inj Syg) 500 mcg STK-MED ONCE .ROUTE 05/15/17 08:25 05/15/17 08:26 DC Oxytocin (Oxytocin) 10 units STK-MED ONCE .ROUTE 05/15/17 08:25 05/15/17 08:26 DC Morphine Sulfate (Duramorph) 10 mg STK-MED ONCE .ROUTE 05/15/17 08:25 05/15/17 08:26 DC Naloxone HCl (Narcan) 0.1 mg Q2M PRN IV FOR RESP RATE 8 OR LESS 05/15/17 11:30 7/6/17 11:29 DC Ketorolac Tromethamine (Toradol) 30 mg Q6H PRN IV PAIN 05/15/17 11:30 05/16/17 11:29 DC 05/16/17 06:16 Morphine Sulfate (morphine) 2 mg Q3H PRN IV PAIN LEVEL 1-5 05/15/17 11:30 05/16/17 11:29 DC Diphenhydramine HCl (Benadryl) 25 mg Q6H PRN IV ITCHING 05/15/17 11:30 05/16/17 11:29 DC Ondansetron HCl (Zofran Inj) 4 mg Q6H PRN IV NAUSEA AND/OR VOMITING 05/15/17 11:30 05/16/17 11:29 DC 05/15/17 11:22 Miscellaneous Information (* Miscellaneous Pharmacy Order) Duramorph: 0.2 mg Spi... GIVEN XX 05/15/17 11:30 05/15/17 12:56 DC Acetaminophen/ Codeine Phosphate (Tylenol No.3) 1 tab Q4H PRN PO PAIN LEVEL 4-6 05/15/17 13:00 Acetaminophen/ Codeine Phosphate (Tylenol No.3) 2 tab Q4H PRN PO PAIN LEVEL 7-10 05/15/17 13:00 Oxycodone/ Acetaminophen (Percocet (5/ 325)) 1 tab Q4H PRN PO PAIN LEVEL 4-6 05/15/17 13:00 Oxycodone/ Acetaminophen (Percocet (5/ 325)) 2 tab Q4H PRN PO PAIN LEVEL 7-10 05/15/17 13:00 05/18/17 07:55 Ibuprofen (Motrin) 600 mg Q6 PO 05/16/17 12:00 05/18/17 11:34 Simethicone (Mylicon) 160 mg Q8H PRN PO DISTENSION/GAS/BLOATING 05/15/17 13:00 Senna/Docusate Sodium (Senokot-S) 1 tab BID PO 05/15/17 21:00 05/18/17 08:48 Lanolin (Tmy-E-Iwwzew) 1 applic BEDSIDE MEDICATION PRN TOP BEDSIDE FOR MATILDA TO NIPPLES 05/15/17 13:00 Diphtheria/ Tetanus/Acell Pertussis 0.5 ml 0.5 ml ONCE ONCE IM* 05/18/17 09:00 05/18/17 09:01 DC Oxytocin/Lactated Ringer's 500 ml @ 0 mls/hr ONCE PRN IV For Hemorrhage Management 05/15/17 13:00 Methylergonovine Maleate (Methergine) 0.2 mg ONCE PRN IM VAGINAL BLEEDING 05/15/17 13:00 Carboprost Tromethamine (Hemabate) 250 mcg ONCE PRN IM VAGINAL BLEEDING 05/15/17 13:00 Misoprostol 1000 mcg 1,000 mcg ONCE PRN IN VAGINAL BLEEDING 05/15/17 13:00 Cefazolin Sodium 50 ml @ 100 mls/hr ONCE IVPB 05/15/17 13:00 05/15/17 13:29 DC 05/15/17 17:30 Oxytocin/Lactated Ringer's 500 ml @ 125 mls/hr Q4H IV 05/15/17 12:50 05/16/17 12:59 DC 05/16/17 04:38 Labetalol HCl (Normodyne) 100 mg BID PO 05/15/17 21:00 05/15/17 22:30 Oxytocin/Lactated Ringer's 30 unit STK-MED ONCE IV 05/15/17 07:00 05/16/17 17:33 DC Post day 3 Patient is doing well, Ambulatory She is afebrile Abdomen is soft , Fundus is firm Moderate amount of lochia Breasts are soft, Nipples are intact No calf tenderness. Incision is healing well. Breast feeding the new born. Kelly to be removed in the clinic in 3 days. Condition on Discharge Physical Assessment Voiding: Yes Bowel Movement: Yes Breast: Soft, non-tender Fundus: Firm Abdomen and Incision: Healing well Calf Tenderness: No Patient Condition: Good TEVIN SAAB MD May 18, 2017 12:31
== END 2017-05-18 15:20 | disposition home or self-care (01) | DRG 765 ==
LOC: L-D 04:56 → PP1 12:26
PROVIDERS: ADMIT Obstetrics & Gynecology; ATTEND Obstetrics & Gynecology
PROC: 10D00Z1 Extraction of Products of Conception, Low, Open Approach (ICD-10-PCS; principal; 2017-05-15 07:30)
DX: O34.211 Maternal care for low transverse scar from previous cesarean delivery (principal); O10.92 Unspecified pre-existing hypertension complicating childbirth; O24.420 Gestational diabetes mellitus in childbirth, diet controlled; Z3A.39 39 weeks gestation of pregnancy; Z37.0 Single live birth
CPT/HCPCS: 85025; 85610; 85730; 86592; 86850; 86900; 86901; 87340; 90715; 94760; 99464; J0690; J1885; J2274; J2370; J2405; J2590; J7120